=== PATIENT | male | born 1990 | race Caucasian/White ===

== ENCOUNTER 2022-12-06 13:50 | Emergency (ER) | payer OTHER ==
[~2022-12-06] VITALS: Ht 165.1 cm; Wt 86.2 kg
[2022-12-06 13:56] VITALS: BP 137/92
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
--- NOTE | 2022-12-06 14:22 | NUR ---
DISCHARGED WITH [facility] #[id number]. PT VERBALIZED UNDERSTANDING OF DISCHARGE INSTRUCTIONS. VSS.
== END 2022-12-06 14:22 ==
LOC: ER 14:21
DX: Z00.00 Encounter for general adult medical examination without abnormal findings (principal)